=== PATIENT | male | born 1995 | race Caucasian/White ===

== ENCOUNTER → 2023-12-26 | Outpatient (CLI) | payer OTHER | END | disposition home or self-care (01) | LOC: RADMN 13:18 | PROVIDERS: ATTEND Physician Assistant | DX: S83.512A Sprain of anterior cruciate ligament of left knee, initial encounter (principal); S80.02XA Contusion of left knee, initial encounter; M23.207 Derangement of unspecified meniscus due to old tear or injury, left knee; X58.XXXA Exposure to other specified factors, initial encounter; Y93.89 Activity, other specified; Y92.89 Other specified places as the place of occurrence of the external cause; Y99.8 Other external cause status | CPT/HCPCS: 73721 ==